=== PATIENT | female | born 1995 | race African-American/Black ===

== ENCOUNTER 2022-01-11 14:25 | Emergency (ER) | payer SELFPAY ==
[~2022-01-11] VITALS: Ht 167.6 cm; Wt 60.0 kg
[2022-01-11 14:41] VITALS: BP 127/79
[2022-01-11] MEDS: PENICILLIN G BENZATHINE 2,400,000 UNITS/4ML SYR IM ONE (17:05)
== END 2022-01-11 18:01 | disposition home or self-care (01) ==
LOC: ER 14:25
DX: A53.9 Syphilis, unspecified (principal)
CPT/HCPCS: 81025; 86592; 87389; 87491; 87591; 96372; 99283; J0561